=== PATIENT | female | born 1935 ===

== ENCOUNTER 2022-08-01 17:32 | Inpatient (IN) | payer MEDICARE, OTHER ==
[~2022-08-01] VITALS: Ht 144.8 cm; Wt 53.5 kg
[2022-08-01] MEDS ORDERED: TOLT2ER PO (20:23)
[2022-08-01] MEDS ORDERED: ALBU8HFA2 INH (20:24)
[2022-08-01] MEDS ORDERED: TERB250 PO (20:24)
[2022-08-01] MEDS ORDERED: OMEP20ER PO (20:25)
[2022-08-01] MEDS ORDERED: ROSU10TA PO (20:25)
[2022-08-01] MEDS ORDERED: NITR.4SL SL (20:26)
[2022-08-01] MEDS ORDERED: Lithium Carbon150 MG PO (20:26)
[2022-08-01] MEDS ORDERED: LEVSOD25 PO (20:27)
[2022-08-01] MEDS ORDERED: Amlodipine Bes2.5 MG PO (20:27)
[2022-08-02 04:49] LABS: BASOPHILS ABSOLUTE AUTO 0.05 K/mm3 (0.00-0.23); BASOPHILS PERCENT AUTO 0 % (0-2); EOSINOPHILS ABSOLUTE AUTO 0.21 K/mm3 (0.00-0.68); EOSINOPHILS PERCENT AUTO 2 % (0-6); Hematocrit 32.4 % (33.0-51.0); Hemoglobin 10.4 g/dL (11.5-16.0); IMMATURE GRAN ABSOLUTE AUTO 0.04 K/mm3 (0.00-0.10); IMMATURE GRAN PERCENT AUTO 0 % (0-1); LYMPHOCYTES ABSOLUTE AUTO 0.49 K/mm3 (0.84-5.20); LYMPHOCYTES PERCENT AUTO 4 % (21-46); MONOCYTES ABSOLUTE AUTO 1.36 K/mm3 (0.16-1.47); MONOCYTES PERCENT AUTO 11 % (4-13); Mean Corpuscular HGB 31.7 pg (26.0-34.0); Mean Corpuscular HGB Conc 32.1 g/dL (31.5-36.5); Mean Corpuscular Volume 99 fL (80-100); Mean Platelet Volume 9.6 fL (9.1-12.4); NEUTROPHILS ABSOLUTE AUTO 10.52 K/mm3 (1.96-9.15); NEUTROPHILS PERCENT AUTO 83 % (41-73); Platelet Count 156 K/mm3 (150-400); RDW Coefficient Variation 14.3 % (11.7-14.2); RDW Standard Deviation 52.2 fL (35.1-46.3); Red Blood Cell Count 3.28 M/mm3 (3.80-5.20); White Blood Cell Count 12.67 K/mm3 (4.00-11.30)
[2022-08-02 05:19] LABS: Bun/Creatinine Ratio 22.1 (12.0-20.0); Potassium, Blood 4.1 mmol/L (3.5-5.5)
--- NOTE | 2022-08-02 05:35 | NUR ---
SHIFT SUMMARY PT NEW DIRECT ADMIT FROM [facility] THIS EVENING. PT HAD AN UNEVENTFUL NIGHT. SLEPT MUCH OF THE NIGHT. SON DROVE UP AND IS STAYING IN [place]EL [place]. PT DOES HAVE A CONGESTED COUGH, REPORTS HAVING GREEN SPUTUM BUT NONE SEEN BY THIS RN THIS SHIFT. PT ARRIVED ON 2 L O2 VIA NC AND REMAINED ON 2 L THROUGHOUT THE NIGHT. HAS DENIED SOB OR PAIN. VITAL SIGNS STABLE. WILL CONTINUE TO MONITOR.
--- NOTE | 2022-08-02 17:18 | NUR ---
SHIFT SUMMARY PTS SON AT BEDSIDE DURING THE MORNING AND INTO THE AFTERNOON. ANSWERS QUESTIONS WHEN SPOKEN TO BUT OTHERWISE STAYS VERY QUIET. EATS ONLY SMALL AMOUNTS OF FOOD WITH EACH MEAL. HAS DENIED RESP DISTRESS TODAY. O2 REMOVED THIS MORNING AND SATS HAVER REMAINED IN MID 90'S. UP IN CHAIR AFTER LUNCH AND SHOWER TAKEN.
--- NOTE | 2022-08-03 05:07 | NUR ---
SHIFT SUMMARY PT APPEARED A BIT MORE CONFUSED THIS EVENING THAN LAST NIGHT. SETTING OFF THE BED ALARM MULTIPLE. MOSTLY STEADY ON FEET BUT DISORIENTED WHEN FIRST WAKING. PT REMAINED ON RA THROUGH THE NIGHT. O2 SATS IN THE MID 90'S. LUNG SOUNDS CONTINUE TO SOUND COARSE BUT IMPROVING. PT DENIES SOB. VITAL SIGNS STABLE. NO ACUTE EVENTS THIS EVENING. WILL CONTINUE TO MONITOR.
[2022-08-03 09:15] LABS: BASOPHILS ABSOLUTE AUTO 0.07 K/mm3 (0.00-0.23); BASOPHILS PERCENT AUTO 1 % (0-2); EOSINOPHILS PERCENT AUTO 2 % (0-6); Hematocrit 37.9 % (33.0-51.0); Hemoglobin 11.6 g/dL (11.5-16.0); IMMATURE GRAN ABSOLUTE AUTO 0.06 K/mm3 (0.00-0.10); IMMATURE GRAN PERCENT AUTO 0 % (0-1); LYMPHOCYTES ABSOLUTE AUTO 0.49 K/mm3 (0.84-5.20); LYMPHOCYTES PERCENT AUTO 4 % (21-46); MONOCYTES ABSOLUTE AUTO 0.92 K/mm3 (0.16-1.47); MONOCYTES PERCENT AUTO 7 % (4-13); Mean Corpuscular HGB 31.2 pg (26.0-34.0); Mean Corpuscular HGB Conc 30.6 g/dL (31.5-36.5); Mean Corpuscular Volume 102 fL (80-100); Mean Platelet Volume 9.8 fL (9.1-12.4); NEUTROPHILS ABSOLUTE AUTO 11.92 K/mm3 (1.96-9.15); NEUTROPHILS PERCENT AUTO 87 % (41-73); Platelet Count 192 K/mm3 (150-400); RDW Coefficient Variation 14.4 % (11.7-14.2); RDW Standard Deviation 54.2 fL (35.1-46.3); Red Blood Cell Count 3.72 M/mm3 (3.80-5.20); White Blood Cell Count 13.76 K/mm3 (4.00-11.30)
[2022-08-03 09:27] LABS: Bun/Creatinine Ratio 20.4 (12.0-20.0); Calcium, Blood 10.8 mg/dL (8.5-10.1); Creatinine, Blood 1.03 mg/dL (0.40-1.00)
[2022-08-03] MEDS ORDERED: AZIT250 PO (13:27)
[2022-08-03] MEDS ORDERED: Acetaminophen650 M1 PO (13:27)
[2022-08-03] MEDS ORDERED: CEFP200 PO (13:29)
== END 2022-08-03 14:10 | disposition home health service (06) | DRG 193 ==
LOC: MEDS 17:32
PROVIDERS: Internal Medicine; ADMIT Hospitalist
DX: J18.9 Pneumonia, unspecified organism (principal); J96.01 Acute respiratory failure with hypoxia; I13.0 Hypertensive heart and chronic kidney disease with heart failure and stage 1 through stage 4 chronic kidney disease, or unspecified chronic kidney disease; J44.0 Chronic obstructive pulmonary disease with (acute) lower respiratory infection; Z66 Do not resuscitate; N18.9 Chronic kidney disease, unspecified; E78.5 Hyperlipidemia, unspecified; G31.83 Neurocognitive disorder with Lewy bodies; F02.80 Dementia in other diseases classified elsewhere, unspecified severity, without behavioral disturbance, psychotic disturbance, mood disturbance, and anxiety; I50.9 Heart failure, unspecified; F31.9 Bipolar disorder, unspecified; Z90.49 Acquired absence of other specified parts of digestive tract; Z90.89 Acquired absence of other organs
CPT/HCPCS: 36415; 80048; 85025; 94760; 94761; A9270; J0696; J1650